=== PATIENT | male | born 1950 | race Caucasian/White ===

== ENCOUNTER → 2024-07-07 | Outpatient (CLI) | payer MEDICARE, MEDICAID, SELFPAY ==
--- NOTE | 2024-07-07 13:33 | LES_PTH ---
PATIENT: SUSANNAH MUHAMMAD LOC: [facility] U#:[id number] AGE/SX: 73/M ROOM: RE07/07/[address]: Dr. Valente Contreras MD : 1950 BED: DIS: 07/07/2024 SPEC #: [id number] RECD: 07/07/24 13:57 STATUS: REJI DOMINIC #: [id number] TYLER: 07/07/24 13:[address]: Valente Contreras DEPT: SURGICAL PATHOLOGY RECD BY: Omar Giron ENTERED: 07/07/24 14:18 SP TYPE: Lesion OTHR DR: Dr. Kyle Carroll MD Tissues: A - Skin of neck, NOS Procedures: Surgery Specimen Level IV HEADER OPERATION: Excision of skin lesion right neck PRE-OP DIAGNOSIS: Right neck lesion TISSUE SUBMITTED: A- Right neck skin lesion MICROSCOPIC DIAGNOSIS A. Skin, right neck excision: * Atypical melanocytic proliferation, pending consultation with dermatopathology (See note) Note: The slides will be sent for consultation with dermatopathology and the final results will be issued as an addendum MICROSCOPIC DESCRIPTION Slides are reviewed. GROSS DESCRIPTION A. Received in formalin in a container labeled with the patient's name, date of , and R neck skin lesion is an unoriented and ovoid skin excision measuring 1.5 x 1.4 cm with an excisional depth ranging from 0.1 to 0.5 cm. The majority of the epidermis is occupied by a pink-weiss, mottled, and rubbery nodule measuring 1.9 x 1.8 x 1.2 cm. The nodule focally abuts the peripheral margin. The remaining epidermis is salazar-pink with black-weiss mottling. The deep margin is inked green, and serial sections reveal weiss-brown to salazar-pink, variegated and glistening surfaces that abut the deep margin. The specimen is submitted entirely as follows:A1-2. Opposing ends, each perpendicularly sectionedA3-4. Remainder of specimen [facility] 07-07-2024 CPT:[id number] ADDENDUM ADDENDUM ADDENDUM ADDENDUM ADDENDUM ADDENDUM ADDENDUM ADDENDUM ADDENDUM ADDENDUM 07/16/2024 13:35 ADDENDUM 07/16/2024 13:35 ADDENDUM 07/16/2024 13:35 ADDENDUM 07/16/2024 13:35 ADDENDUM 07/16/2024 13:35 This addendum is added to incorporate an outside pathology consultation report. The case was examined at [facility] by Dr. Gomez (#[id number]) and the following diagnosis was rendered. A. Skin, right neck, excision: Melanoma. Please see complete above mentioned consultation report in EMR
== END | disposition home or self-care (01) ==
PROVIDERS: PCP Family Medicine; Referring Provider Surgery; Visit Provider Surgery
DX: L98.9 Disorder of the skin and subcutaneous tissue, unspecified (principal)
CPT/HCPCS: 88305